=== PATIENT | male | born 1985 | race Two or more races ===

== ENCOUNTER 2022-03-31 15:09 | Emergency (ER) | payer OTHER ==
[~2022-03-31] VITALS: Ht 188 cm; Wt 123.0 kg
[2022-03-31] MEDS ORDERED: IBUP800T27 PO (19:35)
[2022-03-31] MEDS ORDERED: KETOROLAC TROMETH 60MG/2ML VIAL IM ONE (19:45)
[2022-03-31 19:49] VITALS: BP 132/70
== END 2022-03-31 19:54 | disposition home or self-care (01) ==
LOC: ER 15:09
DX: M54.59 Other low back pain (principal); E78.5 Hyperlipidemia, unspecified; Z88.6 Allergy status to analgesic agent
CPT/HCPCS: 96372; 99283; J1885